=== PATIENT | female | born 1955 | race African-American/Black ===

== ENCOUNTER 2018-10-04 17:11 | Emergency (ER) | payer OTHER ==
[~2018-10-04] VITALS: Ht 165.1 cm; Wt 95.3 kg
[~2018-10-04 17:11] MED LIST: AMLO10TA4 PO; ASPI-630 PO; ATOR10TA60 PO; BACL20TA PO; CARV25TA PO; ENAL5TAB PO; FURO-68 PO; GLIP5TAB10 PO; HYDR-2761 PO; HYDR-2869 PO
--- NOTE | 2018-10-04 17:44 | PHYS DOC ---
Past Medical History Past Medical History: Asthma, CHF, CVA, Diabetes-Type II, Hypertension, Other Additional Past Medical Histor: sleep apnea, neuropathy, left side weakness Past Surgical History: Hysterectomy, Other Additional Past Surgical Histo: ORIF left leg Alcohol Use: None Drug Use: None Adult General Chief Complaint Chief Complaint: MECHANICAL FALL HPI HPI Patient is a 63 year old female who presents with chief complaint of mechanical fall she tripped over a curb in a parking lot she's had a stroke so comes in time she loses her balance she did not lose consciousness she did bump her head she does have baseline problem left eye she has no neck pain just some right shoulder pain. No chest pain no abdominal pain no loss of consciousness tetanus was 6-7 years ago she tells me. Review of Systems Review of Systems Constitutional: Denies fever or chills [] Eyes: Denies change in visual acuity, redness, or eye pain [] HENT: Denies nasal congestion or sore throat [] Respiratory: Denies cough or shortness of breath [] Cardiovascular: No additional information not addressed in HPI [] GI: Denies abdominal pain, nausea, vomiting, bloody stools or diarrhea [] : Denies dysuria or hematuria [] Musculoskeletal: Integument: Denies rash or skin lesions [] All other systems were reviewed and found to be within normal limits, except as documented in this note. Current Medications Current Medications Current Medications Medications (Trade) Dose Ordered Sig/Juliocesar Start Time Stop Time Status Last Admin Dose Admin Diphtheria/ Tetanus/Acell Pertussis (Boostrix) 0.5 ml ONCE ONCE 10/04/18 17:45 10/04/18 17:46 DC 10/04/18 19:05 0.5 ML Ondansetron HCl (Zofran Odt) 4 mg 1X ONCE 10/04/18 19:30 10/04/18 19:31 DC 10/04/18 19:34 4 MG Oxycodone/ Acetaminophen (Percocet 5/325) 2 tab 1X ONCE 10/04/18 19:30 10/04/18 19:31 DC 10/04/18 19:34 2 TAB Allergies Allergies Allergies Coded Allergies Type Severity Reaction Last Updated Verified metformin Allergy Severe diarrhea 03/08/14 Yes Locqtnp-Yba-Ovf Reductase Inhibitor Allergy Unknown 10/04/18 Yes Physical Exam Physical Exam Constitutional: Well developed, well nourished, mild to moderate distress HENT: Normocephalic, atraumatic, bilateral external ears normal, oropharynx moist, no oral exudates, nose normal. [] Eyes: opaque cornea old per pt Neck: Normal range of motion, paraspinous tenderness on the right no midline tenderness, supple, no stridor. [] Lungs & Thorax: No chest wall trauma was seen nontender to palpation Abdomen: Bowel sounds normal, soft, no tenderness, no masses, no pulsatile masses. [] Skin: There is a 0.5 cm laceration noted to the left supraorbital area Back: No tenderness, no CVA tenderness. [] Extremities mild ttp right shoulder rom mostly intact. Neurologic: Alert and oriented X 3, normal motor function, normal sensory function, no focal deficits noted. [] Psychologic: Affect normal, judgement normal, mood normal. [] Current Patient Data Vital Signs Vital Signs Date Time Temp Pulse Resp B/P (MAP) Pulse Ox O2 Delivery O2 Flow Rate FiO2 10/04/18 19:34 17 97 Room Air 10/04/18 17:11 98.6 70 126/58 (80) 98.6 EKG EKG [] Radiology/Procedures Radiology/Procedures [] Impressions: Impression: Intraoperative gas is noted lateral to the left maxillary sinus lateral wall. No definite displaced fracture delineated. This finding is of indeterminate significance. Minimal chronic paranasal sinusitis. Left superolateral periorbital hematoma. Electronically signed by: Ryan Arambula MD (10/04/2018 7:59 PM) [facility] DICTATED and SIGNED BY: CHANTELLE APPLE MD DATE: 10/04/181953 Impression: Left superolateral periorbital soft tissue hematoma. Left pthesis bulbi. While a depressed fracture is not definitely seen, there is minimal gas evident superficial to the lateral wall of the left maxillary sinus. Consider maxillofacial CT for more definitive assessment for fracture. No intracranial hemorrhage. Electronically signed by: Ryan Arambula MD (10/04/2018 6:03 PM) [facility] MY INTERPRETATION OF SHOULDER XRAY SEVERE ARTHRITIS NO OBVIOUS FRACTURE WAS IDENTIFIED, FINAL READ IS PENDING. Course & Med Decision Making Course & Med Decision Making Pertinent Labs and Imaging studies reviewed. (See chart for details) []closed head injury tetanus given ct head shoulder xray. NONSUTURABLE LACERATION NOTED TO THE FOREHEAD. CT HEAD NEG ACUTE. NOTED CT FACE READ, NO DEFINITE FRACTURE WAS SEEN. SHOULDER FINAL READ PENDING, BUT I DONT SEE FRACTURE, ADVISED PMD F/U FOR SEVERE OA SEEN. Dragon Disclaimer Dragon Disclaimer This electronic medical record was generated, in whole or in part, using a voice recognition dictation system. Departure Departure Impression: Primary Impression: Closed head injury Disposition: HOME, SELF-CARE Condition: STABLE Referrals: NON,STAFF (PCP) MARIA ELENA WU MD Oct 04, 2018 17:44
[2018-10-04] MEDS ORDERED: DIPHTH,PERTUSS(ACELL),TET TOX 0.5 ML DISP.SYRIN. VAX IM ONE (17:45)
--- NOTE | 2018-10-04 18:07 | RAD ---
Examination: CT HEAD WO CONTRAST History: FALL, LACERATION BY LEFT EYE, NO PRIORS, pain Comparison/Correlation: CT head without contrast report dated 12/16/2012. Images are not provided. Findings: Axial images of the head were obtained without contrast. Ventricles are normal size. No intracranial hemorrhage, midline shift, or mass effect. Cavernous carotid calcifications are present. Visualized arterial calcifications noted. Atrophy noted. Left pthesis bulbi is seen. Right globe and optic nerves are unremarkable. Left superolateral periorbital soft tissue hematoma is present. No radiopaque foreign body. No acute displaced or depressed fracture delineated. Partial opacification of the left maxillary sinus. There is minimal gas present lateral to the left maxillary sinus lateral wall best seen on axial image 5 of series 6. Impression: Left superolateral periorbital soft tissue hematoma. Left pthesis bulbi. While a depressed fracture is not definitely seen, there is minimal gas evident superficial to the lateral wall of the left maxillary sinus. Consider maxillofacial CT for more definitive assessment for fracture. No intracranial hemorrhage. Electronically signed by: Ryan Arambula MD (10/04/2018 6:03 PM) [facility]
[2018-10-04] MEDS ORDERED: oxyCODONE/APAP 5/325 1 TAB TABLET PO ONE (19:30)
[2018-10-04] MEDS ORDERED: ONDANSETRON ODT 4 MG TAB.RAPDIS. PO ONE (19:30)
--- NOTE | 2018-10-04 20:03 | RAD ---
Examination: CT MAXILLOFACIAL WO CONTRAST History: left side facial trauma, no priors Comparison/Correlation: None Findings: Axial images of the maxillofacial structures were obtained without contrast. Sagittal and coronal reformatted images were provided. Left superolateral periorbital soft tissue hematoma is present. Phthesis bulbi on the left noted. Right globe and optic nerves are normal. Right extraocular muscles are normal. Partial opacification of the left maxillary sinus is present. Opacification of the left fracture sinus ostium partially seen. A droplet of gas is seen lateral to the left maxillary sinus lateral wall on axial image 46 of series 9 and coronal image 29 of series 10. There is no definite displaced fracture identified. No orbital floor fracture. Nasal turbinate hypertrophy bilaterally symmetric. Evaluation of the mandible is limited with radiopaque device in place. Impression: Intraoperative gas is noted lateral to the left maxillary sinus lateral wall. No definite displaced fracture delineated. This finding is of indeterminate significance. Minimal chronic paranasal sinusitis. Left superolateral periorbital hematoma. Electronically signed by: Ryan Arambula MD (10/04/2018 7:59 PM) [facility]
[2018-10-04 20:46] VITALS: BP 139/64
--- NOTE | 2018-10-05 00:47 | RAD ---
Right shoulder 3 views. HISTORY: Pain, trauma, fall 3 views were taken of the right shoulder. There is severe arthritis with joint space narrowing and prominent spurring on the humeral head. There is no fracture or dislocation. IMPRESSION: 1. Arthritis right shoulder. 2. No acute fracture. Electronically signed by: Miguel Angel Marshall MD (10/05/2018 12:43 AM) [facility]
== END 2018-10-04 21:10 | disposition home or self-care (01) ==
LOC: ER 17:12
DX: S09.90XA Unspecified injury of head, initial encounter (principal); E11.40 Type 2 diabetes mellitus with diabetic neuropathy, unspecified; J45.909 Unspecified asthma, uncomplicated; I11.0 Hypertensive heart disease with heart failure; I50.9 Heart failure, unspecified; I25.2 Old myocardial infarction; Z91.041 Radiographic dye allergy status; Z88.8 Allergy status to other drugs, medicaments and biological substances; W01.0XXA Fall on same level from slipping, tripping and stumbling without subsequent striking against object, initial encounter; Y93.89 Activity, other specified; Y92.89 Other specified places as the place of occurrence of the external cause; Y99.8 Other external cause status
CPT/HCPCS: 70450; 70486; 73030; 90471; 90715; 99284; Q0162

== ENCOUNTER 2021-12-26 23:11 | Emergency (ER) | payer OTHER ==
[~2021-12-26] VITALS: Ht 167.6 cm; Wt 100.0 kg
[~2021-12-26 23:11] MED LIST changes: -ENAL5TAB PO; +ENAL5TAB12 PO
--- NOTE | 2021-12-26 23:25 | PHYS DOC ---
Past Medical History Past Medical History: Asthma, CHF, CVA, Diabetes-Type II, Hypertension, Other Additional Past Medical Histor: sleep apnea, neuropathy, left side weakness,CHRONIC PAIN Past Surgical History: Hysterectomy, Knee Replacement, Tonsillectomy, Other Additional Past Surgical Histo: ORIF left leg,BILAT KNEES Smoking Status: Former Smoker Alcohol Use: None Drug Use: None General Adult EDM: Chief Complaint: SHOULDER INJURY HPI: HPI: Patient is a 66 year old female past medical history hypertension hyperlip idemia diabetes CVA with left-sided residual weakness presents with a chief complaint of right shoulder pain. Patient states she has had shoulder pain since October 2019. Patient had previous right shoulder surgery but surgery resulted in no improvement. Patient denies any injuries. States she took 2 hydrocodone with minimal relief. Patient has been evaluated by her primary care physician who performed an x-ray which showed no acute fractures or dislocations. Patient has been referred to orthopedics and has an upcoming appointment here at [facility]. Patient is questioning if she can get an MRI. Review of Systems: Review of Systems: Constitutional: Denies fever or chills. [] Eyes: Denies change in visual acuity. [] HENT: Denies nasal congestion or sore throat. [] Respiratory: Denies cough or shortness of breath. [] Cardiovascular: Denies chest pain or edema. [] GI: Denies abdominal pain, nausea, vomiting, bloody stools or diarrhea. [] : Denies dysuria. [] Musculoskeletal: Positive shoulder pain Integument: Denies rash. [] Neurologic: Denies headache, focal weakness or sensory changes. [] Endocrine: Denies polyuria or polydipsia. [] Lymphatic: Denies swollen glands. [] Psychiatric: Denies depression or anxiety. [] Heart Score: C/O Chest Pain: N/A Risk Factors: Risk Factors: DM, Current or recent (<one month) smoker, HTN, HLP, family history of CAD, obesity. Risk Scores: Score 0 - 3: 2.5% MACE over next 6 weeks - Discharge Home Score 4 - 6: 20.3% MACE over next 6 weeks - Admit for Clinical Observation Score 7 - 10: 72.7% MACE over next 6 weeks - Early Invasive Strategies Allergies: Allergies: Allergies Coded Allergies Type Severity Reaction Last Updated Verified metformin Allergy Severe diarrhea 03/08/14 Yes Welzxxb-Meh-Jrn Reductase Inhibitor Allergy Unknown 10/04/18 Yes Physical Exam: PE: General: alert, no acute distress. Skin: warm, dry and intact, no erythema, no rash. HENT: bilateral external ears normal, oropharynx moist, nose normal. Head:: Normocephalic, atraumatic. Neck: Trachea midline. Eyes: EOMI, Normal conjunctiva, No drainage CARDIOVASCULAR: Regular rate and rhythm RESPIRATORY: No respiratory distress Back: Full range of motion. MUSCULOSKELETAL: Decreased range of motion right shoulder due to pain no deformities right upper extremity is neurovascularly intact. GASTROINTESTINAL: Abdomen soft without rebound or guarding. NEUROLOGICAL: Alert and noted to person, place and time. Patient with history of CVA left-sided residual weakness including left upper and lower extremities. Patient is able to ambulate she has range of motion of bilateral upper and lower extremities on the left Psychiatric: Cooperative. Normal judgment EKG: EKG: [] Radiology/Procedures: Radiology/Procedures: [] Course & Med Decision Making: Course & Med Decision Making Pertinent Labs and Imaging studies reviewed. (See chart for details) [] Long discussion with the patient unsure as what I can offer her. Based upon history of present illness and physical exam I do not see the need for any radiologic imaging. I feel the patient's pain is chronic and related to the rotator cuff. Patient would benefit from an MRI which cannot perform in the emergency department. Patient is requesting a pain medicine we will treat her with morphine IM. Patient will be discharged home with instruction to continue her current pain medication and follow-up with orthopedics as scheduled Nery Disclaimer: Nery Disclaimer: This electronic medical record was generated, in whole or in part, using a voice recognition dictation system. Departure Departure Impression: Primary Impression: Chronic right shoulder pain Disposition: LEFT AWOL/ELOPED Condition: STABLE Referrals: UNKNOWN PCP NAME (PCP) Patient Instructions: Shoulder Pain ABHIJEET THORNTON I DO Dec 26, 2021 23:25
[2021-12-26] MEDS ORDERED: MORPHINE SULFATE 4 MG/ML INJ. IM ONE (23:30)
[2021-12-26 23:39] VITALS: BP 126/58
== END 2021-12-26 23:47 | disposition left against medical advice (07) ==
LOC: ER 23:11
DX: M25.511 Pain in right shoulder (principal); G89.29 Other chronic pain; I11.0 Hypertensive heart disease with heart failure; I50.9 Heart failure, unspecified; E11.40 Type 2 diabetes mellitus with diabetic neuropathy, unspecified; J45.909 Unspecified asthma, uncomplicated; Z86.73 Personal history of transient ischemic attack (TIA), and cerebral infarction without residual deficits; Z87.891 Personal history of nicotine dependence; Z88.8 Allergy status to other drugs, medicaments and biological substances
CPT/HCPCS: 96372; 99284; J2270